=== PATIENT | female | born 1990 | race Caucasian/White ===

== ENCOUNTER 2021-07-17 06:43 | Inpatient (IN) | payer MEDICAID ==
[~2021-07-17] VITALS: Ht 154.9 cm; Wt 86.7 kg
[2021-07-22 13:02] VITALS: BP 127/90
== END 2021-07-22 14:51 | disposition home or self-care (01) | DRG 805 ==
LOC: LDIP 06:43 → 2NW 22:40 → 4EST 07-21 12:10
PROVIDERS: ADMIT Obstetrics & Gynecology; ATTEND Obstetrics & Gynecology
PROC: 10E0XZZ Delivery of Products of Conception, External Approach (ICD-10-PCS; principal; 2021-07-17)
PROC: 3E0DXGC Introduction of Other Therapeutic Substance into Mouth and Pharynx, External Approach (ICD-10-PCS; 2021-07-17)
PROC: 3E0R3BZ Introduction of Anesthetic Agent into Spinal Canal, Percutaneous Approach (ICD-10-PCS; 2021-07-17)
PROC: 00HU33Z Insertion of Infusion Device into Spinal Canal, Percutaneous Approach (ICD-10-PCS; 2021-07-17)
PROC: 0HQ9XZZ Repair Perineum Skin, External Approach (ICD-10-PCS; 2021-07-17)
DX: O36.5930 Maternal care for other known or suspected poor fetal growth, third trimester, not applicable or unspecified (principal); O85 Puerperal sepsis; Z37.0 Single live birth; J96.01 Acute respiratory failure with hypoxia; J18.9 Pneumonia, unspecified organism; O86.21 Infection of kidney following delivery; N10 Acute pyelonephritis; Z20.822 Contact with and (suspected) exposure to COVID-19; O70.0 First degree perineal laceration during delivery; O99.285 Endocrine, nutritional and metabolic diseases complicating the puerperium; O99.53 Diseases of the respiratory system complicating the puerperium; Z3A.38 38 weeks gestation of pregnancy